=== PATIENT | female | born 1940 | race Caucasian/White ===

== ENCOUNTER → 2017-07-29 | Outpatient (CLI) | payer OTHER ==
[~2017-07-29] MED LIST: ADVIL200 M1 PO; ALLEGRA ALLERG180 MG PO; CELEBREX 200 M200 M1 PO; CENTRUM SILVER1 EAC4 PO; EVISTA PO; GLUCOSAMINE &1 EAC1 PO; LEXAPRO 10 MG T10 M1 PO; MYRBETRIQ50 MG PO; NORCO 5-325 TA1 EACH PO; OMEGA 3 1,0001 EACH PO; ONDANSETRON HCL4 M2 PO; PERCOCET PO; RISPERDAL2 MG PO; TRAZODONE HCL50 MG PO; TUMS PO
== END ==
LOC: RAD 08:56
DX: M47.894 Other spondylosis, thoracic region (principal); M47.896 Other spondylosis, lumbar region; M41.86 Other forms of scoliosis, lumbar region

== ENCOUNTER → 2017-11-03 | Outpatient (CLI) | payer OTHER | LOC: RAD 09:36 | DX: M47.894 Other spondylosis, thoracic region (principal); M47.896 Other spondylosis, lumbar region; M41.86 Other forms of scoliosis, lumbar region ==

== ENCOUNTER 2019-10-17 14:20 | Inpatient (IN) | payer OTHER ==
[~2019-10-17] VITALS: Ht 175.3 cm; Wt 79.8 kg
[2019-10-17 17:21] LABS: HEMATOCRIT 24.1 % (37.0-47.0); HEMOGLOBIN 8.1 gm/dL (12.0-15.0); MCH 32.6 pg (26.0-34.0); MCHC 33.7 g/dL (28.0-37.0); MCV 96.8 fL (80.0-100.0); RBC 2.49 mil/uL (4.20-5.00); RDW 14.6 % (10.5-14.5); WBC 14.2 thou/uL (4.0-11.0)
[2019-10-17 17:38] LABS: ALBUMIN 2.2 g/dL (3.4-5.0); CALCIUM 8.6 mg/dL (8.5-10.1); CREATININE 4.8 mg/dL (0.6-1.0); POTASSIUM 4.6 mmol/L (3.5-5.1); TOTAL BILIRUBIN 0.6 mg/dL (<0.1-1.0); TOTAL PROTEIN 6.8 g/dL (6.4-8.2)
[2019-10-17 18:19] VITALS: BP 134/72
--- NOTE | 2019-10-17 18:48 | NUR ---
ASSUMED CARE OF THE PT AT 1815. PT HAD PETALLAR TENDON REPAIR. PAIN IS UNDER CONTROL BY ABDUCTOR CANAL. GAIL DRESSING AND POLAR PACK IN PLACE. PT IS NOT TO BE UP AD ANJALI OR WEIGHT BEARING ON THE KNEE WITHOUT IMMOBILIZER ON THE R KNEE. FALL PRECAUTIONS IN PLACE. BED IN LOWEST POSITION AND CALL LIGHT IS WITHIN REACH. WILL MONITOR AND GIVE REPORT TO THE NOC NURSE.
[2019-10-17 21:07] VITALS: BP 115/58
[2019-10-17 21:22] LABS: URINE BILIRUBIN NEGATIVE (Negative); URINE BLOOD 2+ (Negative); URINE CLARITY TURBID; URINE COLOR YELLOW; URINE GLUCOSE-RANDOM* NEGATIVE (Negative); URINE KETONES NEGATIVE (Negative); URINE LEUKOCYTES-REFLEX 3+ (Negative); URINE NITRITE-REFLEX NEGATIVE (Negative); URINE PROTEIN (DIPSTICK) 1+ (Negative); URINE SPECIFIC GRAVITY 1.015 (1.005-1.035); URINE UROBILINOGEN 0.2 E.U./dl (0.2-1.0)
[2019-10-17 21:32] LABS: URINE WBC-REFLEX >25 Many /HPF (0-5)
[2019-10-17 21:33] LABS: BACTERIA-REFLEX 1-9 Few /HPF (None Seen); CASTS None Seen /LPF (None Seen); CRYSTALS None Seen /LPF (None Seen); SQUAMOUS 0-3 Few /LPF (0-3); URINE RBC 0-2 Rare /HPF (0-2)
[2019-10-18 03:10] VITALS: BP 125/70
--- NOTE | 2019-10-18 04:34 | NUR ---
ASSUMED PT CARE AROUND 1900. PT IS A&OX4, BUT HAS PERIODS OF FORGETFULNESS. PT WOULD OCCASSIONALLY WAKE UP DISORIENTED ON THE TIME AND SITUATION DURING THE NIGHT. REORIENTATION PROVIDED. NO C/O PAIN. PT GOT UP TO [facility] A COUPLE TIMES, THINKING SHE NEEDED TO HAVE A BOWEL MOVEMENT. SHE HAS NOT YET BEEN ABLE TO HAVE A BOWEL MOVEMENT. COBB TO DD WITH GOOD URINE OUTPUT. FALL PRECAUTIONS IN PLACE. PROGRESSING SLOWLY TOWARD POC GOALS. WILL CONTINUE TO MONITOR FURTHER.
[2019-10-18 06:17] LABS: CALCIUM 8.5 mg/dL (8.5-10.1); CREATININE 4.6 mg/dL (0.6-1.0); POTASSIUM 5.1 mmol/L (3.5-5.1)
[2019-10-18 07:30] VITALS: BP 128/67
--- NOTE | 2019-10-18 14:38 | NUR ---
ASSESSMENT-PT LIVES IN AN INDEPENDENT APT AT [facility]. 11 DAYS AGO PT WAS DRIVING AND 9 DAYS AGO FLEW ON A PLANE TO SEE HER SON. PT USUALLY GOES TO THE DINING AREA FOR HER MEALS. PT WALKED ON HER OWN. PT'S ABOUT 9 MONTHS AGO THEN SHE MOVED IN TO [facility]. PT HAS HAD POOR BALANCE AND FELL 3 TIMES PER HER SON. FOLLOWING TO ASSIST WITH DC PLANNING.
[2019-10-18 16:17] VITALS: BP 124/60
[2019-10-18 17:43] LABS: CALCIUM 7.6 mg/dL (8.5-10.1); CREATININE 4.7 mg/dL (0.6-1.0); POTASSIUM 4.8 mmol/L (3.5-5.1)
--- NOTE | 2019-10-18 18:15 | NUR ---
PT A&OX4, FORGETFUL AT TIMES. IV INFUSING IN R AC W/O COMPS. TRANSFERS WITH [facility] ASSIST TO [facility]. PT'S SON [place]O WHO IS HER DPOA HAS BEEN AT BEDSIDE THROUGHOUT THE DAY AND HAS HAD SEVERAL CONCERNS TODAY WITH CARE STARTING WITH THE ANTIBIOTIC PT WAS ON, VS THAT WERE STABLE EXCEPT TEMP THAT WAS 100.3 THIS AM. PT HAS PROLASPED UTERUS PROTRUDING OUTSIDE VAGINA THAT SHE HAS HAD FOR A LENGTH OF TIME SON WHO IS A RADIOLOGIST FEELS THAT SHE NEEDS SURGERY TO INCREASE KIDNEY FUNCTION. BLOOD CX WAS ORDERED THAT WAS NOT DRAWN FOR A A UNEXCEPTABLE TIME AND NEW ANTIBIOTIC THAT I DID NOT START UNTIL AFTER BLOOD CULTURE WAS DRAWN. SON REPEATED SEVERAL TIMES THAT IT WAS NOT MY CARE HE WAS UPSET WITH. SON HAS BEEN ON HIS CELL PHONE THROUGHOUT THE DAY, HE DID STATE HE WAS TRANSFERING HIS MOTHER TO . SEEN PT TODAY BUT DR.C. ESCALANTE WHO IS COVERING THIS PM WAS NOTIFIED AND D DISCUSSED HIS CONCERNS. SON DID STATE TO ME IS WORKING ON HER TRANSFER. WILL CONT POC.
[2019-10-18 19:17] VITALS: BP 133/53
--- NOTE | 2019-10-19 11:00 | NUR ---
RECEIVED OT EVAL AND TREAT ORDERS. PATIENT DISCHARGED FROM THE HOSPITAL LAST NIGHT PRIOR TO OT BEING ABLE TO EVALUATE.
--- NOTE | 2019-10-20 09:46 | H ---
[facility] [place] [address] HISTORY AND PHYSICAL Name: TRISTIN NEWELL Room #: 444-P [facility] IN M.R.#: [id number] Admission: 10/17/19 Attend Phys: Candace Mejia Discharge: 10/18/19 Date of : 38 Report #: [id number] THIS REPORT FOR: //name// CC: Ryan Sprague DATE OF SERVICE: 10/17/2019 CHIEF COMPLAINT: Fever. HISTORY OF PRESENT ILLNESS: The patient is a 78-year-old female who was admitted from the office with fever and abdominal pain. She was admitted by Dr. Sprague after he assessed her in the office and was noted to have what he describes as a large vaginal vesicular prolapse. Upon admission, she had an elevated creatinine to 4.9 and an ultrasound consistent with bilateral hydronephrosis. Bello catheter has been placed and she has good urine output overnight, but continues to have fever and confusion. Her creatinine has only responded slightly overnight to decompression. PAST MEDICAL HISTORY: Depression, osteoarthritis, sciatica, chronic back pain, insomnia. PAST SURGICAL HISTORY: She has had a tonsillectomy. FAMILY HISTORY: Noncontributory. SOCIAL HISTORY: She lives alone. No chronic alcohol or tobacco use. Her son is a radiation oncologist in [place]. ALLERGIES: None. MEDICATIONS: Myrbetriq, Celebrex, Evista, Nasacort, Centrum, Tylenol, Risperdal, trazodone, Lexapro, Porsche. REVIEW OF SYSTEMS: She denies headache, chest pain, shortness of breath, abdominal pain, nausea, vomiting, diarrhea, constipation, dysuria, syncope. OBJECTIVE: VITAL SIGNS: Temperature 36.7, pulse 97, respirations 18, blood pressure 128/67, O2 sat 91% on room air. GENERAL: She is awake and alert, lying in bed, appears weak. HEAD AND NECK: Unremarkable. LUNGS: Clear. HEART: Regular. ABDOMEN: Soft, normoactive bowel sounds. EXTREMITIES: No edema. NEUROLOGIC: Motor strength 3/5 throughout. [facility] [address] [place] [address] HISTORY AND PHYSICAL Name: TRISTIN NEWELL Room #: 444-P [facility] IN M.R.#: [id number] Admission: 10/17/19 Attend Phys: Candace Mejia Discharge: 10/18/19 Date of : 38 Report #: [id number] LABORATORY DATA: Creatinine 4.6. Urinalysis had 2+ blood, 3+ leukocytes, 25 white cells, few bacteria. White count was 14, hemoglobin 8. Albumin is 2.2. As mentioned, renal ultrasound shows bilateral [id number] hydronephrosis, greater on the right. There was no mention of any ureteral obstruction or hydroureter. ASSESSMENT: 1. Acute kidney injury. 2. Acute bladder outlet obstruction. 3. Acute urinary retention due to the above. 4. Vaginal vesicular prolapse by history. 5. Anemia of chronic disease. 6. Elevated transaminase levels. 7. Severe protein-calorie malnutrition, albumin 2.2. PLAN: For now, we are going to broaden her IV antibiotic therapy. She has had a fever this morning to 100.4. Repeat chemistry be obtained this afternoon to watch her renal function. So far, she has had good urinary output, responding to the Bello catheter for decompression. <ELECTRONICALLY SIGNED> By: Jamie Weber MD 10/20/19 [id number] Jamie Weber MD /nt
== END 2019-10-18 21:58 | disposition short-term general hospital (02) | DRG 698 ==
LOC: 4S 14:20
PROVIDERS: Internal Medicine Geriatric Medicine; ADMIT Internal Medicine
DX: N32.0 Bladder-neck obstruction (principal); E43 Unspecified severe protein-calorie malnutrition; N17.9 Acute kidney failure, unspecified; N39.0 Urinary tract infection, site not specified; N81.10 Cystocele, unspecified; F32.9 Major depressive disorder, single episode, unspecified; M19.90 Unspecified osteoarthritis, unspecified site; G89.29 Other chronic pain; M54.9 Dorsalgia, unspecified; Z60.2 Problems related to living alone; R33.9 Retention of urine, unspecified; D63.8 Anemia in other chronic diseases classified elsewhere; Z68.26 Body mass index [BMI] 26.0-26.9, adult; Z79.899 Other long term (current) drug therapy
CPT/HCPCS: 10102